=== PATIENT | female | born 1960 | race Caucasian/White ===

== ENCOUNTER → 2018-06-10 | Emergency (ER) | payer OTHER ==
[~2018-06-10] VITALS: Ht 157.5 cm; Wt 104.3 kg
[~2018-06-10] MED LIST: ASPIRIN 81 MG TAB.CHEW PO ONE; KETOROLAC TROMETHAMINE 30 MG VIAL IVP ONE; LORazepam 2 MG/ML VIAL (FOR ER USE) IVP ONE; NACL 0.9% 1,000 ML IV ONE
[2018-06-10 17:04] VITALS: BP_SYST 155
[2018-06-10 18:06] LABS: BASOPHILS % (AUTO) 0.4 % (0.0-2.0); EOSINOPHILS # (AUTO) 0.2 K/uL (0.0-0.4); EOSINOPHILS % (AUTO) 1.9 % (0.0-4.0); HEMATOCRIT 43.4 % (36-48); HEMOGLOBIN 14.9 g/dL (12.0-16.0); LYMPHOCYTES # (AUTO) 4.2 K/uL (1.0-5.5); LYMPHOCYTES % (AUTO) 35.2 % (20.5-51.5); MEAN CORPUSCULAR HEMOGLOBIN 31 pg (27-31); MEAN CORPUSCULAR HGB CONC 34 % (32-36); MEAN CORPUSCULAR VOLUME 89 fL (79.0-98.0); MONOCYTES # (AUTO) 0.6 K/uL (0.0-1.0); MONOCYTES % (AUTO) 4.7 % (1.7-9.3); NEUTROPHILS # (AUTO) 6.8 K/uL (1.8-7.7); NEUTROPHILS % (AUTO) 57.8 % (40.0-70.0); PLATELET COUNT (AUTO) 302 K/uL (130-430); RED CELL DISTRIBUTION WIDTH 13.2 % (9.0-15.0); WHITE BLOOD COUNT (AUTO) 11.8 K/uL (4.8-10.8)
[2018-06-10 18:14] LABS: ANION GAP 12 (5-15); CHLORIDE 106 mmol/L (98-107); CREATININE 0.86 mg/dL (0.55-1.30); GLUCOSE 93 mg/dL (70-99); SODIUM SERUM 143 mmol/L (136-145); UREA NITROGEN, BLOOD 10 mg/dL (8-21)
[2018-06-10 18:15] LABS: GFR AFRICAN AMERICAN 87 mL/min (>90)
[2018-06-10 18:22] LABS: ALANINE AMINOTRANSFERASE 22 U/L (12-78); ALBUMIN 3.6 g/dL (3.4-4.8); ASPARTATE AMINOTRANSFERASE 18 U/L (10-37); LIPASE 121 U/L (73-393); TOTAL BILIRUBIN 0.1 mg/dL (0.0-1.0)
[2018-06-10 19:12] VITALS: BP_SYST 123
== END | disposition still patient (30) ==
LOC: SED 17:04
DX: M94.0 Chondrocostal junction syndrome [Tietze] (principal); F17.210 Nicotine dependence, cigarettes, uncomplicated; R03.0 Elevated blood-pressure reading, without diagnosis of hypertension; Z85.3 Personal history of malignant neoplasm of breast
CPT/HCPCS: 36415; 71045; 74021; 80053; 83690; 84484; 85025; 96361; 96374; 96375; 99285; J1885; J2060; J7030

== ENCOUNTER 2018-07-14 15:43 | Inpatient (IN) | payer OTHER ==
[~2018-07-14] VITALS: Ht 157.5 cm; Wt 103.4 kg
[2018-07-14 15:49] VITALS: BP_SYST 146
[2018-07-14] MEDS ORDERED: NACL 0.9% 1,000 ML IV ONE (17:16)
[2018-07-14] MEDS ORDERED: ONDANSETRON HCL 4 MG/2 ML VIAL IVP ONE (17:30)
[2018-07-14 18:33] LABS: HEMATOCRIT 45.7 % (36-48); MEAN CORPUSCULAR HEMOGLOBIN 29 pg (27-31); MEAN CORPUSCULAR HGB CONC 33 % (32-36); MEAN CORPUSCULAR VOLUME 89 fL (79.0-98.0); PLATELET COUNT (AUTO) 310 K/uL (130-430); RED BLOOD CELL COUNT(AUTO) 5.12 MIL/uL (4.2-6.2); RED CELL DISTRIBUTION WIDTH 13.1 % (9.0-15.0); WHITE BLOOD COUNT (AUTO) 17.1 K/uL (4.8-10.8)
[2018-07-14 18:34] LABS: CALCIUM 9.7 mg/dL (8.4-11.0); CREATININE 1.02 mg/dL (0.55-1.30); POTASSIUM 4.2 mmol/L (3.5-5.1)
[2018-07-14 18:39] LABS: ALBUMIN 3.9 g/dL (3.4-4.8); TOTAL BILIRUBIN 0.4 mg/dL (0.0-1.0)
[2018-07-14 18:49] LABS: BAND % (MANUAL) 1 % (0-6); BASOPHILS % (MANUAL) 0 % (0-2); EOSINOPHILS % (MANUAL) 1 % (0-7); LYMPHOCYTES % (MANUAL) 14 % (20-46); MONOCYTES % (MANUAL) 3 % (0-11)
[2018-07-14 20:50] LABS: BILIRUBIN,URINE NEGATIVE (NEGATIVE); BLOOD, URINE NEGATIVE (NEGATIVE); CLARITY/URINE CLEAR (CLEAR); COLOR,URINE YELLOW (YELLOW); GLUCOSE,URINE NEGATIVE (NEGATIVE); KETONES,URINE NEGATIVE (NEGATIVE); LEUKOCYTE ESTERASE ,URINE NEGATIVE (NEGATIVE); NITRITE, URINE NEGATIVE (NEGATIVE); PH,URINE 6.5 (5.0-8.0); PROTEIN URINE NEGATIVE (NEGATIVE); UROBILINOGEN,URINE 0.2 (0.2-1.0)
[2018-07-14] MEDS ORDERED: MECLIZINE HCL 25 MG TABLET (ANITVERT) PO ONE ×2 (21:30→22:30)
[2018-07-14] MEDS ORDERED: DIAZEPAM 10 MG/2 ML DISP.SYRIN IVP ONE (22:30)
[2018-07-14] MEDS ORDERED: DIAZEPAM 10 MG/2 ML DISP.SYRIN ONE (23:01)
[2018-07-15] MEDS ORDERED: GABA-531 PO (01:03)
[2018-07-15] MEDS ORDERED: NACL 0.9% 1,000 ML IV ONE (01:30)
[2018-07-15 02:04] VITALS: BP_SYST 151
[2018-07-15] MEDS: NACL 0.9% 1,000 ML IV SCH ×2 (02:48→14:24)
[2018-07-15 03:01] VITALS: BP_SYST 150
[2018-07-15 07:25] VITALS: BP_SYST 142
[2018-07-15] MEDS ORDERED: ONDANSETRON HCL 4 MG/2 ML VIAL IM PRN (10:30)
[2018-07-15 12:05] VITALS: BP_SYST 147
[2018-07-15] MEDS ORDERED: HYDROcodone/ACETAMIN 5-325 MG TAB (NORCO/ VICODIN) PO ONE (13:15)
[2018-07-15] MEDS ORDERED: HYDROcodone/ACETAMIN 5-325 MG TAB (NORCO/ VICODIN) PO PRN (13:15)
[2018-07-15] MEDS ORDERED: MECLIZINE HCL 25 MG TABLET (ANITVERT) PO ONE (13:15)
[2018-07-15] MEDS ORDERED: ACETAMINOPHEN 500 MG TABLET PO PRN (13:15)
[2018-07-15] MEDS ORDERED: HYDROcodone/ACETAMIN 5-325 MG TAB (NORCO/ VICODIN) ONE (13:20)
[2018-07-15] MEDS ORDERED: ASPIRIN 325 MG TABLET (ECOTRIN) PO ONE (13:30)
[2018-07-15] MEDS ORDERED: PANTOPRAZOLE GRANULES PACKET 40 MG GT ONE (13:45)
[2018-07-15 14:18] LABS: BASOPHILS % (AUTO) 0.3 % (0.0-2.0); EOSINOPHILS # (AUTO) 0.1 K/uL (0.0-0.4); EOSINOPHILS % (AUTO) 0.9 % (0.0-4.0); HEMATOCRIT 41.7 % (36-48); HEMOGLOBIN 13.5 g/dL (12.0-16.0); LYMPHOCYTES # (AUTO) 3.6 K/uL (1.0-5.5); LYMPHOCYTES % (AUTO) 27.8 % (20.5-51.5); MEAN CORPUSCULAR HEMOGLOBIN 28 pg (27-31); MEAN CORPUSCULAR HGB CONC 33 % (32-36); MEAN CORPUSCULAR VOLUME 88 fL (79.0-98.0); MONOCYTES # (AUTO) 0.6 K/uL (0.0-1.0); MONOCYTES % (AUTO) 4.6 % (1.7-9.3); NEUTROPHILS # (AUTO) 8.8 K/uL (1.8-7.7); NEUTROPHILS % (AUTO) 66.4 % (40.0-70.0); PLATELET COUNT (AUTO) 275 K/uL (130-430); RED BLOOD CELL COUNT(AUTO) 4.76 MIL/uL (4.2-6.2); RED CELL DISTRIBUTION WIDTH 13.3 % (9.0-15.0); WHITE BLOOD COUNT (AUTO) 13.1 K/uL (4.8-10.8)
[2018-07-15 16:05] VITALS: BP_SYST 135
[2018-07-15 19:34] VITALS: BP_SYST 124
[2018-07-15] MEDS ORDERED: NA PHOS,M-B/NA PHOS,DI-BA 118 ML (FLEET ENEMA) RC ONE (20:00)
[2018-07-15] MEDS: GABAPENTIN 300 MG CAPSULE PO SCH (21:07)
[2018-07-15] MEDS: MECLIZINE HCL 25 MG TABLET (ANITVERT) PO SCH (21:07)
[2018-07-16 00:40] VITALS: BP_SYST 114
[2018-07-16] MEDS: NACL 0.9% 1,000 ML IV SCH ×2 (03:50→18:26)
[2018-07-16 07:16] LABS: BASOPHILS % (AUTO) 0.2 % (0.0-2.0); EOSINOPHILS # (AUTO) 0.1 K/uL (0.0-0.4); EOSINOPHILS % (AUTO) 0.9 % (0.0-4.0); HEMATOCRIT 40.2 % (36-48); HEMOGLOBIN 13.3 g/dL (12.0-16.0); LYMPHOCYTES # (AUTO) 3.1 K/uL (1.0-5.5); MEAN CORPUSCULAR HEMOGLOBIN 29 pg (27-31); MEAN CORPUSCULAR HGB CONC 33 % (32-36); MEAN CORPUSCULAR VOLUME 87 fL (79.0-98.0); MONOCYTES # (AUTO) 0.5 K/uL (0.0-1.0); MONOCYTES % (AUTO) 3.9 % (1.7-9.3); NEUTROPHILS # (AUTO) 9.2 K/uL (1.8-7.7); PLATELET COUNT (AUTO) 272 K/uL (130-430); RED BLOOD CELL COUNT(AUTO) 4.61 MIL/uL (4.2-6.2); RED CELL DISTRIBUTION WIDTH 13.1 % (9.0-15.0); WHITE BLOOD COUNT (AUTO) 12.9 K/uL (4.8-10.8)
[2018-07-16 07:30] VITALS: BP_SYST 145
[2018-07-16 08:13] LABS: CALCIUM 8.4 mg/dL (8.4-11.0); CREATININE 0.74 mg/dL (0.55-1.30); POTASSIUM 3.8 mmol/L (3.5-5.1)
[2018-07-16 08:20] LABS: TOTAL BILIRUBIN 0.4 mg/dL (0.0-1.0)
[2018-07-16] MEDS: ASPIRIN 325 MG TABLET (ECOTRIN) PO SCH (09:25)
[2018-07-16] MEDS: PANTOPRAZOLE GRANULES PACKET 40 MG GT SCH (09:25)
[2018-07-16] MEDS: MECLIZINE HCL 25 MG TABLET (ANITVERT) PO SCH ×3 (09:26→21:20)
[2018-07-16 11:22] VITALS: BP_SYST 153
[2018-07-16] MEDS ORDERED: LACTULOSE 20 GM/30 ML UDC PO PRN (13:15)
[2018-07-16] MEDS ORDERED: MINERAL OIL 30 ML UDC PO PRN (13:15)
[2018-07-16] MEDS ORDERED: LORazepam 2 MG/ML VIAL IVP ONE (13:15)
[2018-07-16] MEDS ORDERED: BISACODYL 5 MG TABLET.DR (DULCOLAX) PO PRN (13:15)
[2018-07-16 15:24] VITALS: BP_SYST 132
[2018-07-16 20:00] VITALS: BP_SYST 116
[2018-07-16] MEDS: GABAPENTIN 300 MG CAPSULE PO SCH (21:20)
[2018-07-17 00:10] VITALS: BP_SYST 125
[2018-07-17] MEDS: NACL 0.9% 1,000 ML IV SCH ×2 (05:16→23:08)
[2018-07-17 08:16] VITALS: BP_SYST 144
[2018-07-17] MEDS ORDERED: LORazepam 2 MG/ML VIAL IVP ONE (10:00)
[2018-07-17] MEDS: PANTOPRAZOLE GRANULES PACKET 40 MG GT SCH (10:11)
[2018-07-17] MEDS: ASPIRIN 325 MG TABLET (ECOTRIN) PO SCH (10:11)
[2018-07-17] MEDS: MECLIZINE HCL 25 MG TABLET (ANITVERT) PO SCH ×3 (10:11→20:49)
[2018-07-17] MEDS ORDERED: GADOPENTETATE DIMEGLUMINE 15 ML VIAL IV ONE (11:14)
[2018-07-17] MEDS ORDERED: GADOPENTETATE DIMEGLUMINE 5 ML VIAL IV ONE (11:14)
[2018-07-17 12:58] VITALS: BP_SYST 134
[2018-07-17 17:51] VITALS: BP_SYST 120
[2018-07-17 20:23] VITALS: BP_SYST 142
[2018-07-17] MEDS: GABAPENTIN 300 MG CAPSULE PO SCH (20:49)
[2018-07-18 00:30] VITALS: BP_SYST 116
[2018-07-18 08:40] VITALS: BP_SYST 148
[2018-07-18] MEDS: ASPIRIN 325 MG TABLET (ECOTRIN) PO SCH (08:52)
[2018-07-18] MEDS: MECLIZINE HCL 25 MG TABLET (ANITVERT) PO SCH (08:52)
[2018-07-18] MEDS: PANTOPRAZOLE GRANULES PACKET 40 MG GT SCH (08:53)
[2018-07-18] MEDS: NACL 0.9% 1,000 ML IV SCH (08:53)
[2018-07-18] MEDS ORDERED: MECLIZINE HCL 25 MG TABLET (ANITVERT) PO ONE (09:15)
[2018-07-18 11:09] VITALS: BP_SYST 125
[2018-07-18 11:16] VITALS: BP_SYST 125
[2018-07-18] MEDS ORDERED: MECL12.584 PO (11:47)
[2018-07-18] MEDS ORDERED: MECLIZINE HCL 25 MG TABLET (ANITVERT) PO SCH (15:00)
== END 2018-07-18 12:20 | disposition home health service (06) | DRG 59 ==
LOC: SED 15:43 → SMU 07-15 01:25
PROVIDERS: ADMIT Internal Medicine; ATTEND Internal Medicine Hospice and Palliative Medicine
DX: G35 Multiple sclerosis (principal); Z68.41 Body mass index [BMI] 40.0-44.9, adult; E11.9 Type 2 diabetes mellitus without complications; H81.10 Benign paroxysmal vertigo, unspecified ear; H53.2 Diplopia; I10 Essential (primary) hypertension; F41.0 Panic disorder [episodic paroxysmal anxiety]; E66.9 Obesity, unspecified; F17.210 Nicotine dependence, cigarettes, uncomplicated; D72.829 Elevated white blood cell count, unspecified; F40.240 Claustrophobia; Z85.3 Personal history of malignant neoplasm of breast
CPT/HCPCS: 36415; 70450-TC; 70553; 71045; 74021; 80053; 81003; 83605; 83690-TC; 85007; 85025; 85027; 87040-TC; 96361; 96374; 96375; 99285; A9579; J2060; J2405; J3360; J7030; J8597

== ENCOUNTER 2019-12-19 09:59 | Outpatient (CLI) | payer OTHER ==
[~2019-12-19 09:59] MED LIST changes: -ASPIRIN 81 MG TAB.CHEW PO ONE; +GABA-531 PO; -KETOROLAC TROMETHAMINE 30 MG VIAL IVP ONE; -LORazepam 2 MG/ML VIAL (FOR ER USE) IVP ONE; +MECL12.584 PO; -NACL 0.9% 1,000 ML IV ONE
== END 2019-12-19 20:22 | disposition home or self-care (01) ==
LOC: SMA 09:59
PROVIDERS: ATTEND Family Medicine
DX: Z12.31 Encounter for screening mammogram for malignant neoplasm of breast (principal)
CPT/HCPCS: 77067

== ENCOUNTER 2021-12-10 12:01 | Outpatient (CLI) | payer OTHER ==
[~2021-12-10 12:01] MED LIST changes: +MECL-225 PO; -MECL12.584 PO
== END 2021-12-10 21:18 | disposition home or self-care (01) ==
LOC: SMA 12:01
PROVIDERS: ATTEND Family Medicine
DX: Z12.31 Encounter for screening mammogram for malignant neoplasm of breast (principal); N64.89 Other specified disorders of breast
CPT/HCPCS: 77067